=== PATIENT | male | born 1990 | race Caucasian/White ===

== ENCOUNTER 2017-09-26 13:57 | Inpatient (IN) | payer OTHER ==
[2017-09-26 15:29] VITALS: BMI 24.5
--- NOTE | 2017-09-26 19:51 | HP ---
COWS - Scale Resting Pulse: 1= [place] 81-100 Sweatin=Flushed/Facial Moisture Restless Observation: 5= Unable to Sit Still Pupil Size: 2= Moderately Dilated Bone or Joint Aches: 1= Mild Discomfort Runny Nose/ Eye Tearin= Runny Nose/Eyes GI Upset > 30mins: 2= Nausea/Diarrhea Tremor Observation: 2= Slight Tremor Visible Yawning Observation: 1= 1-2x During Session Anxiety or Irritability: 2=Irritable/Anxious Goose Flesh Skin: 0=Smooth Skin COWS Score: 20 Admission ROS BHS - HPI Chief Complaint: "I want to stop using so bad" Allergies/Adverse Reactions: Allergies Allergy/AdvReac Type Severity Reaction Status Date / Time No Known Allergies Allergy Verified 09/26/17 15:14 History of Present Illness: 27 y/o male with a 13 year history of heroin, marijuana, "pills" use presents here today for detox. Pt denies any sober period. denies prior or current suicidal ideation or attempt. Pt very sleepy during admission process, states he has not been sleeping for the last 2 days. Hx of asthma Exam Limitations: Intoxication (very sleepy), Other - Ebola screening Have you traveled outside of the country in the last 21 days: No (N) Have you had contact with anyone from an Ebola affected area: No Have you been sick,other than usual withdrawal symptoms: No Do you have a fever: No - Review of Systems Constitutional: Chills, Night Sweats EENT: reports: Nose Congestion Respiratory: reports: No Symptoms reported GI: reports: No Symptoms Reported : reports: No Symptoms Reported Musculoskeletal: reports: No Symptoms Reported Integumentary: reports: Bruising, Other (track hardy) Endocrine: reports: Flushing Hematology: reports: No Symptoms Reported Psychiatric: reports: Anxious Patient History - Patient Medical History Hx Anemia: No Hx Asthma: Yes (Uses albuterol) Hx Chronic Obstructive Pulmonary Disease (COPD): No Hx Cancer: No Hx Cardiac Disorders: No Hx Congestive Heart Failure: No Hx Hypertension: No Hx Hypercholesterolemia: No Hx Pacemaker: No HX Cerebrovascular Accident: No Hx Seizures: No Hx Dementia: No Hx Diabetes: No Hx Gastrointestinal Disorders: No Hx Liver Disease: No Hx Genitourinary Disorders: No Hx Sexually Transmitted Disorders: No Hx Renal Disease (ESRD): No Hx Thyroid Disease: No Hx Human Immunodeficiency Virus (HIV): No (LAST 09/18 NEGTIVE) Hx Hepatitis C: Yes (FOLLOW UP WITH PMD) Hx Depression: Yes Hx Suicide Attempt: No Hx Bipolar Disorder: No Hx Schizophrenia: No - Patient Surgical History Past Surgical History: No Hx Neurologic Surgery: No Hx Cataract Extraction: No Hx Cardiac Surgery: No Hx Lung Surgery: No Hx Breast Surgery: No Hx Breast Biopsy: No Hx Abdominal Surgery: No Hx Appendectomy: No Hx Cholecystectomy: No Hx Genitourinary Surgery: No Hx Section: No Hx Orthopedic Surgery: No Anesthesia Reaction: No - PPD History Previous Implant?: Yes Documented Results: Negative w/o proof Implanted On Prior [facility] Admission?: Yes Date: 12/17/15 PPD to be Administered?: Yes - Smoking Cessation Smoking history: Current every day smoker Have you smoked in the past 12 months: Yes Aproximately how many cigarettes per day: 20 Cigars Per Day: 0 Hx Chewing Tobacco Use: No Initiated information on smoking cessation: Yes 'Breaking Loose' booklet given: 09/26/17 - Substances Abused Heroin Route: Injection Amount used: 15 bags Age of first use: 17 Date of Last Use: 09/25/17 Alprazolam (Xanax) Route: Oral Frequency: Daily Amount used: 4mg, 1-2 tabs Age of first use: 16 Date of Last Use: 09/25/17 Cocaine Route: Injection Frequency: 1-2 times per week Amount used: 1 gram Age of first use: 16 Date of Last Use: 09/25/17 Marijuana/Hashish Route: Smoking Frequency: Daily Amount used: 2 grams Age of first use: 14 Date of Last Use: 09/26/17 Admission Physical Exam [facility] - Vital Signs Vital Signs: Vital Signs - 24 hr 09/26/17 15:25 Temperature 96.4 F L Pulse Rate 94 H Respiratory 20 Rate Blood Pressure 118/74 - Physical General Appearance: Yes: Moderate Distress, Other (very sleepy) HEENTM: Yes: Nasal Congestion, Hardy (track hardy) Respiratory: Yes: Chest Non-Tender, Lungs Clear Neck: Yes: No masses,lesions,Nodules, Supple Breast: Yes: Breast Exam Deferred Cardiology: Yes: Regular Rate, S1, S2 Abdominal: Yes: Normal Bowel Sounds, Non Tender, Distended Genitourinary: Yes: Within Normal Limits Musculoskeletal: Yes: Within Normal Limits, full range of Motion Extremities: Yes: Other Neurological: Yes: Within Normal Limits Integumentary: Yes: Normal Color, Dry, Warm, Track Hardy (L arm, R arm, redness ) - Diagnostic (1) Opioid dependence with withdrawal Current Visit: No Status: Chronic (2) Uncomplicated sedative, hypnotic or anxiolytic withdrawal Current Visit: No Status: Chronic (3) Anxiety Current Visit: No Status: Chronic (4) Asthma Current Visit: No Status: Chronic Qualifiers: Asthma severity: mild intermittent Asthma complication type: uncomplicated Qualified Code(s): J45.20 - Mild intermittent asthma, uncomplicated (5) Cannabis dependence Current Visit: No Status: Chronic (6) Cocaine dependence Current Visit: No Status: Chronic Qualifiers: Substance use status: uncomplicated Qualified Code(s): F14.20 - Cocaine dependence, uncomplicated (7) Nicotine dependence Current Visit: Yes Status: Acute Cleared for Admission [facility] - Detox or Rehab [facility] Level of Care: Medically Managed Detox Regimen/Protocol: Methadone [facility] Breath Alcohol Content Breath Alcohol Content: 0 Urine Drug Screen - Results Drug Screen Negative: No Urine Drug Screen Results: THC-Marijuana, HI-Cocaine, OPI-Opiates, BZO- Benzodiazepines, OXY-Oxycodone
[2017-09-26] MEDS ORDERED: MAGNESIUM CITRATE 300 ML BOTTLE PO PRN (20:09)
[2017-09-26] MEDS ORDERED: ACETAMINOPHEN 325 MG TABLET (FP) PO PRN (20:09)
[2017-09-26] MEDS ORDERED: P-EPHED 60MG/TRIPROLIDI 2.5MG TABLET PO PRN (20:09)
[2017-09-26] MEDS ORDERED: LOPERAMIDE HCL 2 MG CAPSULE PO PRN (20:09)
[2017-09-26] MEDS ORDERED: NICOTINE POLACRILEX 2 MG GUM BC PRN (20:09)
[2017-09-26] MEDS ORDERED: MENTHOL/PHENOL 1 EACH UD MM PRN (20:09)
[2017-09-26] MEDS ORDERED: METHADONE HCL 10 MG TABLET (FOR DETOX USE ONLY) PO ONE ×2 (20:09→23:00)
[2017-09-26] MEDS ORDERED: hydrOXYzine PAMOATE 50 MG CAPSULE (FP) PO PRN (20:09)
[2017-09-26] MEDS ORDERED: MAG HYDROX/AL HYDROX/SIMETH 30 ML UNIT-DOSE CUP PO PRN (20:09)
[2017-09-26] MEDS ORDERED: MAGNESIUM HYDROX 2400MG/30ML ORAL SUSPENSION 30 ML CUP PO PRN (20:09)
[2017-09-26] MEDS ORDERED: IBUPROFEN 400 MG TABLET (FP) PO PRN (20:09)
[2017-09-26] MEDS ORDERED: guaiFENesin/D-METHORPHAN HB 10 ML UNIT-DOSE CUPS PO PRN (20:09)
[2017-09-26] MEDS: THIAMINE HCL 100 MG TABLET (FP) PO SCH (21:30)
[2017-09-26] MEDS: diazePAM 5 MG TABLET PO PRN (21:30)
[2017-09-26] MEDS: NICOTINE 21 MG/24 HOURS TOPICAL PATCH TD SCH (21:32)
[2017-09-27 02:08] LABS: URINE APPEARANCE CLEAR; URINE BILIRUBIN NEGATIVE (NEGATIVE); URINE BLOOD NEGATIVE (NEGATIVE); URINE COLOR YELLOW; URINE GLUCOSE (UA) NEGATIVE (NEGATIVE); URINE KETONE NEGATIVE (NEGATIVE); URINE LEUK ESTERASE NEGATIVE (NEGATIVE); URINE NITRITE NEGATIVE (NEGATIVE); URINE PROTEIN NEGATIVE (NEGATIVE); URINE UROBILINOGEN 4.0 E.U/dl mg/dL (0.2-1.0)
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
[2017-09-27 09:55] LABS: HEMOGLOBIN 13.4 GM/dL (11.7-16.9); MCH 28.7 pg (25.7-33.7); MCHC 33.6 g/dl (32.0-35.9); MEAN CELL VOLUME 85.3 fl (80-96); MEAN PLT VOLUME 8.6 fl (7.5-11.1); PLATELET COUNT 319 K/MM3 (134-434); RBC 4.69 M/mm3 (4.00-5.60); RDW 13.3 % (11.9-15.9); WHITE BLOOD COUNT 9.1 K/mm3 (4.0-10.0)
[2017-09-27] MEDS ORDERED: METHADONE HCL 10 MG TABLET (FOR DETOX USE ONLY) PO ONE (10:00)
[2017-09-27 10:06] LABS: CHLORIDE 103 mmol/L (98-107); POTASSIUM 3.8 mmol/L (3.5-5.1); SODIUM 140 mmol/L (136-145)
[2017-09-27 10:12] LABS: ALBUMIN 3.2 g/dl (3.4-5.0); ALK PHOS 74 U/L (45-117); BLOOD UREA NITROGEN 11 mg/dL (7-18); CALCIUM 7.9 mg/dL (8.5-10.1); CREATININE 0.7 mg/dL (0.7-1.3); GLUCOSE,RANDOM 88 mg/dL (74-106); SGOT/AST 17 U/L (15-37); SGPT/ALT 18 U/L (12-78); TOT PROT 5.9 g/dl (6.4-8.2)
[2017-09-27 10:14] LABS: ANION GAP 5 (8-16); BILIRUBIN,TOTAL 0.7 mg/dL (0.2-1.0); CO2 32 mmol/L (21-32)
[2017-09-27] MEDS: NICOTINE 21 MG/24 HOURS TOPICAL PATCH TD SCH (10:44)
[2017-09-27] MEDS: PRENATAL VITAMINS W/ FOLIC ACID TABLET (FP) PO SCH (10:44)
[2017-09-27] MEDS: diazePAM 5 MG TABLET PO PRN ×2 (13:01→17:54)
[2017-09-27] MEDS ORDERED: ZOLPIDEM TARTRATE 5 MG TABLET PO PRN (14:50)
--- NOTE | 2017-09-27 18:46 | EKG ---
Test Reason : Blood Pressure : / mmHG Vent. Rate : 072 BPM Atrial Rate : 072 BPM P-R Int : 140 ms QRS Dur : 096 ms QT Int : 402 ms P-R-T Axes : 059 078 037 degrees QTc Int : 440 ms NORMAL SINUS RHYTHM NORMAL ECG NO PREVIOUS ECGS AVAILABLE Confirmed by MD COSTA, JOSHUA ([id number]) on 09/27/2017 6:46:10 PM Referred By: Confirmed By:JOSHUA SKELTON MD
--- NOTE | 2017-09-27 19:41 | PN ---
BHS COWS - Scale Resting Pulse: 0= [place] 80 or Below Sweatin=Flushed/Facial Moisture Restless Observation: 0= Sits Still Pupil Size: 0= Normal to Room Light Bone or Joint Aches: 1= Mild Discomfort Runny Nose/ Eye Tearin= Nasal Congestion GI Upset > 30mins: 1= Stomach Cramp Tremor Observation of Outstretched Hands: 2= Slight Tremor Visible Yawning Observation: 2= >3x During Session Anxiety or Irritability: 2=Irritable/Anxious Goose Flesh Skin: 3=Piloerection COWS Score: 14 BHS Progress Note (SOAP) Subjective: shakes sleepy sweats Objective: 09/27/17 19:38 arousable A & O x 3 Vital Signs Temperature 98.6 F 09/27/17 18:01 Pulse Rate 64 09/27/17 18:01 Respiratory Rate 18 09/27/17 18:01 Blood Pressure 103/56 09/27/17 18:01 O2 Sat by Pulse Oximetry (%) Laboratory Last Values WBC 9.1 K/mm3 (4.0-10.0) D 09/27/17 07:20 RBC 4.69 M/mm3 (4.00-5.60) 09/27/17 07:20 Hgb 13.4 GM/dL (11.7-16.9) 09/27/17 07:20 Hct 40.0 % (35.4-49) 09/27/17 07:20 MCV 85.3 fl (80-96) 09/27/17 07:20 MCH 28.7 pg (25.7-33.7) 09/27/17 07:20 MCHC 33.6 g/dl (32.0-35.9) 09/27/17 07:20 RDW 13.3 % (11.9-15.9) 09/27/17 07:20 Plt Count 319 K/MM3 (134-434) D 09/27/17 07:20 MPV 8.6 fl (7.5-11.1) 09/27/17 07:20 Sodium 140 mmol/L (136-145) 09/27/17 07:20 Potassium 3.8 mmol/L (3.5-5.1) 09/27/17 07:20 Chloride 103 mmol/L (98-107) 09/27/17 07:20 Carbon Dioxide 32 mmol/L (21-32) 09/27/17 07:20 Anion Gap 5 (8-16) L 09/27/17 07:20 BUN 11 mg/dL (7-18) D 09/27/17 07:20 Creatinine 0.7 mg/dL (0.7-1.3) D 09/27/17 07:20 Creat Clearance w eGFR > 60 (>60) 09/27/17 07:20 Random Glucose 88 mg/dL (74-106) D 09/27/17 07:20 Calcium 7.9 mg/dL (8.5-10.1) L 09/27/17 07:20 Total Bilirubin 0.7 mg/dL (0.2-1.0) D 09/27/17 07:20 AST 17 U/L (15-37) 09/27/17 07:20 ALT 18 U/L (12-78) D 09/27/17 07:20 Alkaline Phosphatase 74 U/L (45-117) D 09/27/17 07:20 Total Protein 5.9 g/dl (6.4-8.2) L 09/27/17 07:20 Albumin 3.2 g/dl (3.4-5.0) L 09/27/17 07:20 Urine Color Yellow 09/26/17 22:39 Urine Appearance Clear 09/26/17 22:39 Urine pH 7.0 (5.0-8.0) 09/26/17 22:39 Ur Specific [place] 1.024 (1.001-1.035) 09/26/17 22:39 Urine Protein Negative (NEGATIVE) 09/26/17 22:39 Urine Glucose (UA) Negative (NEGATIVE) 09/26/17 22:39 Urine Ketones Negative (NEGATIVE) 09/26/17 22:39 Urine Blood Negative (NEGATIVE) 09/26/17 22:39 Urine Nitrite Negative (NEGATIVE) 09/26/17 22:39 Urine Bilirubin Negative (NEGATIVE) 09/26/17 22:39 Urine Urobilinogen 4.0 e.u/dl mg/dL (0.2-1.0) 09/26/17 22:39 Ur Leukocyte Esterase Negative (NEGATIVE) 09/26/17 22:39 RPR Titer Nonreactive (NONREACTIVE) 09/27/17 07:20 labs noted Assessment: 09/27/17 19:40 withdrawal sx Plan: continue detox encourage hydration
[2017-09-27] MEDS: THIAMINE HCL 100 MG TABLET (FP) PO SCH (22:59)
[2017-09-28] MEDS ORDERED: METHADONE HCL 5 MG TABLET (FOR DETOX USE ONLY) PO ONE (10:00)
[2017-09-28] MEDS: diazePAM 5 MG TABLET PO PRN (10:28)
[2017-09-28] MEDS: NICOTINE 21 MG/24 HOURS TOPICAL PATCH TD SCH (10:28)
[2017-09-28] MEDS: PRENATAL VITAMINS W/ FOLIC ACID TABLET (FP) PO SCH (10:28)
--- NOTE | 2017-09-28 11:38 | PN ---
BHS COWS - Scale Resting Pulse: 1= [place] 81-100 Sweatin= Chills/Flushing Restless Observation: 3= Extraneous Movement Pupil Size: 0= Normal to Room Light Bone or Joint Aches: 4=Acute Joint/Muscle Pain Runny Nose/ Eye Tearin= Nasal Congestion GI Upset > 30mins: 1= Stomach Cramp Tremor Observation of Outstretched Hands: 1= Tremor [place], Not Seen Yawning Observation: 1= 1-2x During Session Anxiety or Irritability: 2=Irritable/Anxious Goose Flesh Skin: 0=Smooth Skin COWS Score: 15 BHS Progress Note (SOAP) Subjective: ANXIETY,TREMORS, SWEATS, Objective: 09/28/17 11:35 Vital Signs Temperature 97.3 F L 09/28/17 10:00 Pulse Rate 93 H 09/28/17 10:00 Respiratory Rate 20 09/28/17 10:00 Blood Pressure 106/70 09/28/17 10:00 O2 Sat by Pulse Oximetry (%) Laboratory Last Values WBC 9.1 K/mm3 (4.0-10.0) D 09/27/17 07:20 RBC 4.69 M/mm3 (4.00-5.60) 09/27/17 07:20 Hgb 13.4 GM/dL (11.7-16.9) 09/27/17 07:20 Hct 40.0 % (35.4-49) 09/27/17 07:20 MCV 85.3 fl (80-96) 09/27/17 07:20 MCH 28.7 pg (25.7-33.7) 09/27/17 07:20 MCHC 33.6 g/dl (32.0-35.9) 09/27/17 07:20 RDW 13.3 % (11.9-15.9) 09/27/17 07:20 Plt Count 319 K/MM3 (134-434) D 09/27/17 07:20 MPV 8.6 fl (7.5-11.1) 09/27/17 07:20 Sodium 140 mmol/L (136-145) 09/27/17 07:20 Potassium 3.8 mmol/L (3.5-5.1) 09/27/17 07:20 Chloride 103 mmol/L (98-107) 09/27/17 07:20 Carbon Dioxide 32 mmol/L (21-32) 09/27/17 07:20 Anion Gap 5 (8-16) L 09/27/17 07:20 BUN 11 mg/dL (7-18) D 09/27/17 07:20 Creatinine 0.7 mg/dL (0.7-1.3) D 09/27/17 07:20 Creat Clearance w eGFR > 60 (>60) 09/27/17 07:20 Random Glucose 88 mg/dL (74-106) D 09/27/17 07:20 Calcium 7.9 mg/dL (8.5-10.1) L 09/27/17 07:20 Total Bilirubin 0.7 mg/dL (0.2-1.0) D 09/27/17 07:20 AST 17 U/L (15-37) 09/27/17 07:20 ALT 18 U/L (12-78) D 09/27/17 07:20 Alkaline Phosphatase 74 U/L (45-117) D 09/27/17 07:20 Total Protein 5.9 g/dl (6.4-8.2) L 09/27/17 07:20 Albumin 3.2 g/dl (3.4-5.0) L 09/27/17 07:20 Urine Color Yellow 09/26/17 22:39 Urine Appearance Clear 09/26/17 22:39 Urine pH 7.0 (5.0-8.0) 09/26/17 22:39 Ur Specific [place] 1.024 (1.001-1.035) 09/26/17 22:39 Urine Protein Negative (NEGATIVE) 09/26/17 22:39 Urine Glucose (UA) Negative (NEGATIVE) 09/26/17 22:39 Urine Ketones Negative (NEGATIVE) 09/26/17 22:39 Urine Blood Negative (NEGATIVE) 09/26/17 22:39 Urine Nitrite Negative (NEGATIVE) 09/26/17 22:39 Urine Bilirubin Negative (NEGATIVE) 09/26/17 22:39 Urine Urobilinogen 4.0 e.u/dl mg/dL (0.2-1.0) 09/26/17 22:39 Ur Leukocyte Esterase Negative (NEGATIVE) 09/26/17 22:39 RPR Titer Nonreactive (NONREACTIVE) 09/27/17 07:20 Assessment: 09/28/17 11:35 WITHDRAWAL SX Plan: CONTINUE DETOX
[2017-09-28 13:57] VITALS: BP 115/73; PULSE 73; TEMP 96.7
--- NOTE | 2017-09-28 16:21 | DS ---
[facility] Detox Discharge Summary Admission Date: 09/26/17 Discharge Date: 09/28/17 - History Present History: Cannabis Dependence, Opioid Dependence Additional Comments: PT SIGNED OUT AMA FOR PERSONAL REASONS STATING "I JUST WANNA LEAVE". ALL EFFORTS BY STAFF TO ENCOURAGE PT TO COMPLETE TX FAILED. Pertinent Past History: SEE DX BELOW - Physical Exam Results Vital Signs: Vital Signs Temperature 96.7 F L 09/28/17 13:57 Pulse Rate 73 09/28/17 13:57 Respiratory Rate 18 09/28/17 13:57 Blood Pressure 115/73 09/28/17 13:57 O2 Sat by Pulse Oximetry (%) Pertinent Admission Physical Exam Findings: WITHDRAWAL SX Laboratory Last Values WBC 9.1 K/mm3 (4.0-10.0) D 09/27/17 07:20 RBC 4.69 M/mm3 (4.00-5.60) 09/27/17 07:20 Hgb 13.4 GM/dL (11.7-16.9) 09/27/17 07:20 Hct 40.0 % (35.4-49) 09/27/17 07:20 MCV 85.3 fl (80-96) 09/27/17 07:20 MCH 28.7 pg (25.7-33.7) 09/27/17 07:20 MCHC 33.6 g/dl (32.0-35.9) 09/27/17 07:20 RDW 13.3 % (11.9-15.9) 09/27/17 07:20 Plt Count 319 K/MM3 (134-434) D 09/27/17 07:20 MPV 8.6 fl (7.5-11.1) 09/27/17 07:20 Sodium 140 mmol/L (136-145) 09/27/17 07:20 Potassium 3.8 mmol/L (3.5-5.1) 09/27/17 07:20 Chloride 103 mmol/L (98-107) 09/27/17 07:20 Carbon Dioxide 32 mmol/L (21-32) 09/27/17 07:20 Anion Gap 5 (8-16) L 09/27/17 07:20 BUN 11 mg/dL (7-18) D 09/27/17 07:20 Creatinine 0.7 mg/dL (0.7-1.3) D 09/27/17 07:20 Creat Clearance w eGFR > 60 (>60) 09/27/17 07:20 Random Glucose 88 mg/dL (74-106) D 09/27/17 07:20 Calcium 7.9 mg/dL (8.5-10.1) L 09/27/17 07:20 Total Bilirubin 0.7 mg/dL (0.2-1.0) D 09/27/17 07:20 AST 17 U/L (15-37) 09/27/17 07:20 ALT 18 U/L (12-78) D 09/27/17 07:20 Alkaline Phosphatase 74 U/L (45-117) D 09/27/17 07:20 Total Protein 5.9 g/dl (6.4-8.2) L 09/27/17 07:20 Albumin 3.2 g/dl (3.4-5.0) L 09/27/17 07:20 Urine Color Yellow 09/26/17 22:39 Urine Appearance Clear 09/26/17 22:39 Urine pH 7.0 (5.0-8.0) 09/26/17 22:39 Ur Specific [place] 1.024 (1.001-1.035) 09/26/17 22:39 Urine Protein Negative (NEGATIVE) 09/26/17 22:39 Urine Glucose (UA) Negative (NEGATIVE) 09/26/17 22:39 Urine Ketones Negative (NEGATIVE) 09/26/17 22:39 Urine Blood Negative (NEGATIVE) 09/26/17 22:39 Urine Nitrite Negative (NEGATIVE) 09/26/17 22:39 Urine Bilirubin Negative (NEGATIVE) 09/26/17 22:39 Urine Urobilinogen 4.0 e.u/dl mg/dL (0.2-1.0) 09/26/17 22:39 Ur Leukocyte Esterase Negative (NEGATIVE) 09/26/17 22:39 RPR Titer Nonreactive (NONREACTIVE) 09/27/17 07:20 - Treatment Hospital Course: Discharged Condition Good - Medication Discharge Medications: Ambulatory Orders NK [No Known Home Medication] 09/26/17 - Diagnosis (1) Nicotine dependence Current Visit: Yes Status: Acute Qualifiers: Nicotine product type: cigarettes Substance use status: in withdrawal Qualified Code(s): F17.213 - Nicotine dependence, cigarettes, with withdrawal (2) Opioid dependence with withdrawal Current Visit: Yes Status: Acute (3) Uncomplicated sedative, hypnotic or anxiolytic withdrawal Current Visit: Yes Status: Acute (4) Hepatitis C Current Visit: Yes Status: Chronic Qualifiers: Viral hepatitis chronicity: chronic Hepatic coma status: without hepatic coma Qualified Code(s): B18.2 - Chronic viral hepatitis C (5) Cannabis dependence Current Visit: Yes Status: Acute (6) Cocaine dependence Current Visit: No Status: Acute Qualifiers: Substance use status: uncomplicated Qualified Code(s): F14.20 - Cocaine dependence, uncomplicated (7) Asthma Current Visit: Yes Status: Chronic Qualifiers: Asthma severity: mild Asthma complication type: uncomplicated - AMA Did Patient Leave Against Medical Advice: Yes (AMA)
[2017-09-29] MEDS ORDERED: METHADONE HCL 5 MG TABLET (FOR DETOX USE ONLY) PO ONE (10:00)
[2017-09-30] MEDS ORDERED: METHADONE HCL 10 MG TABLET (FOR DETOX USE ONLY) PO ONE (10:00)
[2017-10-01] MEDS ORDERED: METHADONE HCL 5 MG TABLET (FOR DETOX USE ONLY) PO ONE (06:00)
== END 2017-09-28 16:20 | disposition left against medical advice (07) | DRG 770 ==
LOC: YASAS 13:57 → Y3N 15:26
PROVIDERS: ADMIT Internal Medicine; ATTEND Internal Medicine
PROC: HZ2ZZZZ Detoxification Services for Substance Abuse Treatment (ICD-10-PCS; principal; 2017-09-26)
DX: F11.23 Opioid dependence with withdrawal (principal); F13.230 Sedative, hypnotic or anxiolytic dependence with withdrawal, uncomplicated; F14.20 Cocaine dependence, uncomplicated; F12.20 Cannabis dependence, uncomplicated; F17.213 Nicotine dependence, cigarettes, with withdrawal; F43.10 Post-traumatic stress disorder, unspecified; F19.280 Other psychoactive substance dependence with psychoactive substance-induced anxiety disorder; F19.282 Other psychoactive substance dependence with psychoactive substance-induced sleep disorder; Z59.0 Homelessness
CPT/HCPCS: 36415; 80053; 81003; 85027; 86593; 93005; 93010